=== PATIENT | female | born 1965 | race African-American/Black ===

== ENCOUNTER → 2017-05-28 | Day surgery (SDC) | payer OTHER ==
[~2017-05-28] MED LIST: ACETAMINOPHEN/HYDROcodone 325 MG/5 MG TAB ONE; BUPIVACAINE/EPINEPHRINE 0.5% PF 10 ML VIAL ONE; FIORTAB4 PO; KETOROLAC TROMETHAMINE 30 MG/ML (IVP) VIAL IV PUSH ONE; LACTATED RINGER'S 1000 ML INJ 1,000 ML ONE; MEPERIDINE HCL 25 MG/ML VIAL ONE; MIDAZOLAM HCL 2 MG/2 ML VIAL ONE; ONDANSETRON HCL 4 MG/2 ML VIAL IV PUSH ONE; PROPOFOL 200 MG/20 ML AMP IV ONE; SYNT112T PO; TRAM50 PO; ceFAZolin INJ 1,000 MG VIAL ONE
--- NOTE | 2017-05-28 14:13 | TN ---
cc: SARAH GARCIA M.D. DATE OF SURGERY: 05/28/2017 PREOPERATIVE DIAGNOSIS 1. Tear lateral meniscus, right knee. 2. Lateral patellar subluxation, right knee. POSTOPERATIVE DIAGNOSIS 1. Tear lateral meniscus, right knee. 2. Lateral patellar subluxation, right knee. PROCEDURE 1. Arthroscopy right knee. 2. Arthroscopic lateral meniscectomy, right knee. 3. Lateral release, right patella SURGEON Sarah Garcia ANESTHESIA General. ESTIMATED BLOOD LOSS Minimal. INDICATION This patient is a 51-year-old female with significant right knee pain. Investigative study shows evidence of a torn lateral meniscus. There is also suspicion of lateral facet patellar changes with lateral subluxation. She presents for surgical treatment. DETAILS OF PROCEDURE The patient was brought to the operating room and anesthetized in a supine position. The right leg was scrubbed with alcohol followed by Hibiclens followed by ChloraPrep and draped sterilely. Antibiotics were given within a one-hour time window and a timeout was done. Inflow was established anterior and medially. The suprapatellar pouch was inflated. The camera was introduced into the suprapatellar pouch. The suprapatellar pouch was unremarkable. There was minimal synovitis. The patella was significantly subluxed laterally even in a flexed position. The medial and lateral gutters were free of any loose bodies. There was some scarring seen along the lateral retinaculum and along the lateral condyle of the femur. Some corresponding changes of the femur were noted. The medial compartment was essentially normal with a normal-appearing meniscus, and a normal-appearing femur and tibia. The ACL had a normal footprint. The lateral compartment showed a deep tear starting very close to the popliteal hiatus and extending almost to the posterior horn. This had the appearance of a bucket handle tear that had been previously partially displaced and now nearly back to anatomic. There was also a tear right at the lateral meniscus posterior horn insertion. A spinal needle was introduced along the lateral joint line. A separate incision was made. Straight and angled punches were used to take the meniscus back from the 9 o'clock position to the posterior horn. The meniscal resection stopped just anterior to the popliteal hiatus. A proper probe was utilized and a lateral release was accomplished allowing the patella to come back to its normal position. The wound was irrigated copiously. Hemostasis was controlled. The portals were irrigated and anesthetized with 0.5% Marcaine with epinephrine. They were closed with Steri-Strips and benzoin. Sterile dressing was applied. The patient was awakened and taken to Recovery in satisfactory condition. MD DELMY [place]/ALE /1:55 PM /2:00 PM
== END | disposition home or self-care (01) ==
LOC: ESDC 11:02
PROVIDERS: ATTEND Orthopaedic Surgery Orthopaedic Surgery of the Spine
DX: S83.251A Bucket-handle tear of lateral meniscus, current injury, right knee, initial encounter (principal); S83.011A Lateral subluxation of right patella, initial encounter
CPT/HCPCS: 01400; 29873; 29881; J0690; J1885; J2175; J2250; J2405; J3010; J7120

== ENCOUNTER 2017-06-07 21:12 | Emergency (ER) | payer OTHER ==
[~2017-06-07] VITALS: Ht 172.7 cm; Wt 132.9 kg
[~2017-06-07 21:12] MED LIST changes: -ACETAMINOPHEN/HYDROcodone 325 MG/5 MG TAB ONE; -BUPIVACAINE/EPINEPHRINE 0.5% PF 10 ML VIAL ONE; -KETOROLAC TROMETHAMINE 30 MG/ML (IVP) VIAL IV PUSH ONE; -LACTATED RINGER'S 1000 ML INJ 1,000 ML ONE; -MEPERIDINE HCL 25 MG/ML VIAL ONE; -MIDAZOLAM HCL 2 MG/2 ML VIAL ONE; -ONDANSETRON HCL 4 MG/2 ML VIAL IV PUSH ONE; -PROPOFOL 200 MG/20 ML AMP IV ONE; -ceFAZolin INJ 1,000 MG VIAL ONE
[2017-06-07 21:17] VITALS: BP 136/72; PULSE 84; RESP 16; TEMP 98.6; O2SAT 97
[2017-06-07] MEDS ORDERED: LEVO175T2 PO ×2 (22:46)
[2017-06-07] MEDS ORDERED: LEVO150T7 PO ×2 (22:46)
[2017-06-07] MEDS ORDERED: BUTA1CAP PO (22:49)
[2017-06-07] MEDS ORDERED: DICL75TA PO (22:49)
[2017-06-07] MEDS ORDERED: HYDR-3516 PO (22:49)
[2017-06-07 22:51] VITALS: BP 149/90; PULSE 87; RESP 18; O2SAT 98
[2017-06-07] MEDS ORDERED: SODIUM CHLORIDE 0.9% FLUSH 10 ML FLUSH IV FLUSH PRN (23:00)
[2017-06-07] MEDS ORDERED: LIDOCAINE 1%/EPINEPHrine 1:100,000 SOLN 20 ML VIAL INFIL ONE (23:00)
--- NOTE | 2017-06-07 23:20 | PD ---
HPI Chief Complaint: Skin Problem Time Seen by Provider: 22:50 Travel History International Travel<30 days: No Contact w/Intl Traveler<30days: No Traveled to known affect area: No History of Present Illness HPI 51-year-old female here for evaluation of right knee pain. On 05/28/17 the patient underwent arthroscopic right knee surgery by orthopedic surgeon Dr. Anderson. According to the operative notes, the patient had a tear of the lateral meniscus of the right knee as well as lateral patellar subluxation of the right knee. Patient reports that she has been going to rehabilitation as prescribed. Today she noticed increasing pain and swelling to the right knee, and also noticed a low-grade fever of 99.8F at home. She denies any new trauma to the knee. Pain is moderate, constant, worse with movement and palpation. PFSH Past Medical History Anemia: No Asthma: Yes Heart Rhythm Problems: No Cardiovascular Problems: No High Cholesterol: No Chest Pain: Yes Congestive Heart Failure: No Diabetes: No Diminished Hearing: No Endocrine: Yes (GRAVES DISEASE WITH RADIATION TREATMENT IN 2005) Headaches: Yes Heparin Induced Thrombocytopen: Yes Hypertension: No Migraines: Yes Myocardial Infarction: No Radiation Therapy: Yes (THYROID, GRAVES ) Thyroid Disease: Yes Ulcer: Yes Tetanus Vaccination: > 5 Years Influenza Vaccination: No ?: Not Menopausal: Yes : 1 Para: 1 Past Surgical History Abdominal Surgery: Yes (FIBROIDS REMOVED) Section: Yes (X1) Coronary Artery Bypass Graft: No Gynecologic Surgery: Yes Hysterectomy: Yes Joint Replacement: Yes (right knee) Tonsillectomy: Yes Other Surgery: Yes (LAPAROTOMY) Family History Family Myocardial Infarction: Yes (brother had a triple bypass when he was 45, also last year) Social History Alcohol Use: No Tobacco Use: No Substance Use: No Allergies-Medications (Allergen,Severity, Reaction): Coded Allergies: Penelope (Verified Allergy, Severe, SEVERE HEAD PRESSURE, 06/07/17) Morphine (Verified Allergy, Severe, Itching, 06/07/17) Uncoded Allergies: EXCEDRIN (Allergy, Severe, SEVERE HEAD PRESSURE, 05/31/11) Reported Meds & Prescriptions Reported Meds & Active Scripts Active Reported Fioricet (Phghjptydq-Thpehpjhksswf-Hsermilj) 50-300-40 Mg Cap 1-2 Cap PO Q6H PRN Diclofenac Sodium DR (Diclofenac Sodium) 75 Mg Tabdr 75 Mg PO BID Hydrocodone-Acetaminophen 5-325 mg Tab 1 Tab PO Q6H PRN Levothyroxine (Levothyroxine Sodium) 175 Mcg Tab 175 Mcg PO EVERY OTHER DAY Levothyroxine (Levothyroxine Sodium) 150 Mcg Tab 150 Mcg PO EVERY OTHER DAY Review of Systems Except as stated in HPI: all other systems reviewed are Neg Physical Exam Narrative GENERAL: Well-developed, well-nourished, awake, alert, no apparent distress. SKIN: Focused skin assessment warm/dry. HEAD: Atraumatic. Normocephalic. EYES: Pupils equal and round. No scleral icterus. No injection or drainage. ENT: Mucous membranes pink and moist. NECK: Trachea midline. No JVD. CARDIOVASCULAR: Regular rate and rhythm. RESPIRATORY: No accessory muscle use. Clear to auscultation. Breath sounds equal bilaterally. MUSCULOSKELETAL: Right anterior knee with significant edema with diffuse tenderness with overlying warmth and slight erythema. No signs of lymphangitis. Bilateral calves are supple, nontender. NEUROLOGICAL: Awake and alert. No obvious cranial nerve deficits. Motor grossly within normal limits. Normal speech. PSYCHIATRIC: Appropriate mood and affect; insight and judgment normal. Data Data Last Documented VS Vital Signs Date Time Temp Pulse Resp B/P Pulse Ox O2 Delivery O2 Flow Rate FiO2 06/07/17 22:51 87 18 149/90 98 Room Air 06/07/17 21:17 98.6 Orders Complete Blood Count With Diff (06/07/17 23:00) Comprehensive Metabolic Panel (06/07/17 23:00) Prothrombin Time / Inr (Pt) (06/07/17 23:00) Act Partial Throm Time (Ptt) (06/07/17 23:00) Iv Access Insert/Monitor (06/07/17 23:00) Ecg Monitoring (06/07/17 23:00) Oximetry (06/07/17 23:00) Sodium Chloride 0.9% Flush (Ns Flush) (06/07/17 23:00) Blood Culture (06/07/17 23:00) Lidocai-Epi 1%-1:100,000 Inj (Xylocaine- (06/07/17 23:00) Westergren Sedimentation Rate (06/07/17 23:02) C-Reactive Protein (Crp) (06/07/17 23:02) Knee, Complete (4vws) (06/07/17 ) Hydromorphone Pf Inj (Dilaudid Pf Inj) (06/07/17 23:45) Ketorolac Inj (Toradol Inj) (06/08/17 00:00) Synovial Fl Cell Count + Diff (06/08/17 00:07) Synovial Fluid Crystals (06/08/17 00:07) Synovial Fluid Glucose (06/08/17 00:07) Synovial Fluid Total Protein (06/08/17 00:07) Fluid Culture And Gram Stain (06/08/17 00:07) Labs Laboratory Tests Test 06/07/17 23:45 White Blood Count 7.5 TH/MM3 Red Blood Count 4.82 MIL/MM3 Hemoglobin 12.9 GM/DL Hematocrit 37.9 % Mean Corpuscular Volume 78.6 FL Mean Corpuscular Hemoglobin 26.8 PG Mean Corpuscular Hemoglobin 34.1 % Concent Red Cell Distribution Width 13.9 % Platelet Count 265 TH/MM3 Mean Platelet Volume 7.8 FL Neutrophils (%) (Auto) 70.0 % Lymphocytes (%) (Auto) 22.5 % Monocytes (%) (Auto) 5.9 % Eosinophils (%) (Auto) 1.1 % Basophils (%) (Auto) 0.5 % Neutrophils # (Auto) 5.3 TH/MM3 Lymphocytes # (Auto) 1.7 TH/MM3 Monocytes # (Auto) 0.4 TH/MM3 Eosinophils # (Auto) 0.1 TH/MM3 Basophils # (Auto) 0.0 TH/MM3 CBC Comment DIFF FINAL Differential Comment Sodium Level 141 MEQ/L Potassium Level 4.0 MEQ/L Chloride Level 106 MEQ/L Carbon Dioxide Level 28.8 MEQ/L Anion Gap 6 MEQ/L Blood Urea Nitrogen 13 MG/DL Random Glucose 113 MG/DL Calcium Level 9.3 MG/DL Albumin 3.6 GM/DL [facility] Medical Decision Making Medical Screen Exam Complete: Yes Emergency Medical Condition: Yes Differential Diagnosis Septic arthritis, postoperative pain, synovitis Narrative Course Case discussed with on-call orthopedic surgeon Dr. Steele. Recommends arthrocentesis. If fluid analysis reveals obvious septic arthritis, then the patient will be started on antibiotics and will be admitted to the main hospital with a consult placed to Dr. Carl Anderson. Right knee arthrocentesis was performed by me. See procedure note. Liborio blood was aspirated. No notable purulence. At approximately midnight at the end of my shift the patient was signed out to Dr. Winchester to follow up with labs and right knee synovial fluid analysis. Procedures Procedure Narrative Right knee arthrocentesis: Informed consent obtained. Right knee was thoroughly prepped with ChloraPrep. 0.5 cc of 1% lidocaine with epinephrine was used for local anesthesia. Lateral/ suprapatellar approach was used, and 25 cc of bloody aspirate was obtained. Sample sent for further analysis. Tolerated well. No complications. Fab Casas MD Jun 07, 2017 23:20
[2017-06-07 23:30] VITALS: O2SAT 97
--- NOTE | 2017-06-07 23:39 | RADRPT ---
EXAM DATE/TIME: 06/07/2017 23:09 [place] COMPARISON: No previous studies available for comparison. INDICATIONS : Post op swelling of right knee. MEDICAL HISTORY : Lateral meniscus tear. SURGICAL HISTORY : Arthroscopic, right knee. ENCOUNTER: Initial ACUITY: 1 day PAIN SCORE: 5/10 LOCATION: Right knee. FINDINGS: 4 views of the right knee demonstrate no fracture. Mineralization is normal. There is a joint effusio n present. Subcutaneous edema is present laterally. No radiopaque foreign body is visualized. CONCLUSION: There is a joint effusion and subcutaneous edema laterally. Bhavik Jensen MD on June 07, 2017 at 23:35 Board Certified Radiologist. This report was verified electronically.
[2017-06-07] MEDS ORDERED: HYDROmorphone HCL PF 1 MG/ML VIAL IV PUSH ONE (23:45)
[2017-06-08] MEDS ORDERED: KETOROLAC TROMETHAMINE 30 MG/ML (IVP) VIAL IV PUSH ONE
[2017-06-08 00:06] LABS: WHITE BLOOD COUNT 7.5 TH/MM3 (4.0-11.0)
[2017-06-08 00:07] LABS: AUTOMATED NEUTROPHIL # 5.3 TH/MM3 (1.8-7.7); BASOPHIL % 0.5 % (0.0-2.0); EOSINOPHIL # 0.1 TH/MM3 (0-0.4); EOSINOPHIL % 1.1 % (0.0-4.0); HEMATOCRIT 37.9 % (35.0-46.0); HEMO FLAGS DIFF FINAL; LYMPH % 22.5 % (9.0-44.0); LYMPHOCYTE # 1.7 TH/MM3 (1.0-4.8); MEAN CELL VOLUME 78.6 FL (80.0-100.0); MEAN CORPUSCULAR HEMOGLOBIN 26.8 PG (27.0-34.0); MEAN CORPUSCULAR HGB CONC 34.1 % (32.0-36.0); MONO % 5.9 % (0.0-8.0); PLATELET COUNT 265 TH/MM3 (150-450); RED BLOOD COUNT 4.82 MIL/MM3 (4.00-5.30); RED CELL DISTRIBUTION WIDTH 13.9 % (11.6-17.2)
[2017-06-08 00:14] LABS: CHLORIDE 106 MEQ/L (98-107); SODIUM (NA) 141 MEQ/L (136-145)
[2017-06-08 00:18] LABS: ANION GAP 6 MEQ/L (5-15); BICARBONATE 28.8 MEQ/L (21.0-32.0); BLOOD UREA NITROGEN 13 MG/DL (7-18)
[2017-06-08 00:19] LABS: APTT (PATIENT) 30.2 SEC (24.3-30.1); INTERNATIONAL NORMALIZED RATIO 0.9 RATIO
[2017-06-08 00:21] LABS: ALT (GPT) 20 U/L (10-53); AST (GOT) 13 U/L (15-37); GLOMERULAR FILTRATION RATE 93 ML/MIN (>89)
[2017-06-08 00:22] LABS: TOTAL BILIRUBIN ADULT 0.3 MG/DL (0.2-1.0)
[2017-06-08 00:24] LABS: ALKALINE PHOSPHATASE 61 U/L (45-117)
--- NOTE | 2017-06-08 00:52 | PD ---
Physical Exam Date Seen by Provider: Jun 08, 2017 Time Seen by Provider: 00:51 Narrative accepted in transfer of care from Dr Casas GENERAL: Well-developed well-nourished female in no acute distress no respiratory distress SKIN: Warm and dry. MUSCULOSKELETAL: No cyanosis, mild right knee edema with dependent popliteal fossa ecchymosis. Data Data Last Documented VS Vital Signs Date Time Temp Pulse Resp B/P Pulse Ox O2 Delivery O2 Flow Rate FiO2 06/08/17 03:22 70 18 119/80 98 Room Air 06/07/17 21:17 98.6 Orders Complete Blood Count With Diff (06/07/17 23:00) Comprehensive Metabolic Panel (06/07/17 23:00) Prothrombin Time / Inr (Pt) (06/07/17 23:00) Act Partial Throm Time (Ptt) (06/07/17 23:00) Iv Access Insert/Monitor (06/07/17 23:00) Ecg Monitoring (06/07/17 23:00) Oximetry (06/07/17 23:00) Sodium Chloride 0.9% Flush (Ns Flush) (06/07/17 23:00) Blood Culture (06/07/17 23:00) Lidocai-Epi 1%-1:100,000 Inj (Xylocaine- (06/07/17 23:00) Westergren Sedimentation Rate (06/07/17 23:02) C-Reactive Protein (Crp) (06/07/17 23:02) Knee, Complete (4vws) (06/07/17 ) Hydromorphone Pf Inj (Dilaudid Pf Inj) (06/07/17 23:45) Ketorolac Inj (Toradol Inj) (06/08/17 00:00) Synovial Fl Cell Count + Diff (06/08/17 00:07) Synovial Fluid Crystals (06/08/17 00:07) Synovial Fluid Glucose (06/08/17 00:07) Synovial Fluid Total Protein (06/08/17 00:07) Fluid Culture And Gram Stain (06/08/17 00:07) Acetamin-Hydrocod 325-5 Mg (Tippo 5-325 (06/08/17 03:15) Splint Or Brace Apply/Monitor (06/08/17 03:28) Labs Laboratory Tests Test 06/07/17 06/07/1706/08/17 23:45 23:55 00:00 White Blood Count 7.5 TH/MM3 Red Blood Count 4.82 MIL/MM3 Hemoglobin 12.9 GM/DL Hematocrit 37.9 % Mean Corpuscular Volume 78.6 FL Mean Corpuscular Hemoglobin 26.8 PG Mean Corpuscular Hemoglobin 34.1 % Concent Red Cell Distribution Width 13.9 % Platelet Count 265 TH/MM3 Mean Platelet Volume 7.8 FL Neutrophils (%) (Auto) 70.0 % Lymphocytes (%) (Auto) 22.5 % Monocytes (%) (Auto) 5.9 % Eosinophils (%) (Auto) 1.1 % Basophils (%) (Auto) 0.5 % Neutrophils # (Auto) 5.3 TH/MM3 Lymphocytes # (Auto) 1.7 TH/MM3 Monocytes # (Auto) 0.4 TH/MM3 Eosinophils # (Auto) 0.1 TH/MM3 Basophils # (Auto) 0.0 TH/MM3 CBC Comment DIFF FINAL Differential Comment Prothrombin Time 10.0 SEC Prothromb Time International 0.9 RATIO Ratio Activated Partial 30.2 SEC Thromboplast Time Sodium Level 141 MEQ/L Potassium Level 4.0 MEQ/L Chloride Level 106 MEQ/L Carbon Dioxide Level 28.8 MEQ/L Anion Gap 6 MEQ/L Blood Urea Nitrogen 13 MG/DL Creatinine 0.79 MG/DL Estimat Glomerular Filtration 93 ML/MIN Rate Random Glucose 113 MG/DL Calcium Level 9.3 MG/DL Total Bilirubin 0.3 MG/DL Aspartate Amino Transf 13 U/L (AST/SGOT) Alanine Aminotransferase 20 U/L (ALT/SGPT) Alkaline Phosphatase 61 U/L C-Reactive Protein 2.16 MG/DL Total Protein 7.4 GM/DL Albumin 3.6 GM/DL Erythrocyte Sedimentation Rate 3 mm/hr Synovial Fluid Color RED Synovial Fluid Appearance BLOODY Synovial Fluid WBC 19035 /MM3 Synovial Fluid RBC 6814365 /MM3 Synovial Fluid Neutrophils 31 % Synovial Fluid Lymphocytes 20 % Synovial Fluid Monocytes 31 % Synovial Fluid Histiocytes 17 % Synovial Fluid Synovial 1 % Lining Cell Synovial Fluid Crystals NONE MDM Medical Record Reviewed: Yes Supervised Visit with MCKAY: No Interpretation(s) Synovial fluid cell count and differential white blood cell count 15,300 6031% neutrophils red blood cell count 1,000,832 960; Gram stain few WBCs no organisms seen Sedimentation rate 3, not elevated C-reactive protein 2.16, elevated Vital Signs Date Time Temp Pulse Resp B/P Pulse Ox O2 Delivery O2 Flow Rate FiO2 06/08/17 03:22 70 18 119/80 98 Room Air 06/08/17 01:25 20 06/08/17 01:09 68 18 138/83 98 Room Air 06/07/17 23:30 97 Room Air 06/07/17 22:51 87 18 149/90 98 Room Air 06/07/17 21:17 98.6 84 16 136/72 97 CBC & BMP Diagram 06/07/17 23:45 Differential Diagnosis accepted in transfer of care from Dr Casas; please refer to his dictation Narrative Course accepted in transfer of care from Dr Casas; for follow up of pending labs and patient disposition At 3:05 AM Gram stain few WBCs no organisms seen; synovial fluid cell count and differential 15,360 white blood cells 31% neutrophils with 1,832,960 red blood cells, specimen bloody; glucose pending Patient results do not appear to be consistent with septic arthritis but instead with a hemarthrosis and therefore stable for outpatient follow up with her orthopedist; 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 --recommends ortho outpatient follow up Physician Communication Physician Communication discussed arthrocentesis results with Dr Steele -- f/u opt w/ Dr Beverly Diagnosis Primary Impression: Hemarthrosis following procedure Qualified Code: T88.8XXA - Hemarthrosis following procedure, initial encounter Additional Impression: Hemarthrosis involving knee joint Qualified Code: M25.061 - Hemarthrosis involving knee joint, right Referrals: Carl Anderson MD call for appointment Patient Instructions: General Instructions Additional Instruction: wear knee immobilizer continue current medications Follow-up with Dr. Kennedy call office this a.m. to schedule follow-up appointment Elevate right lower extremity Apply ice intermittently for next 12-24 hours Return to the emergency department for any concerns or change in condition Med/Other Pt SpecificInfo: No Change to Meds Disposition: 01 DISCHARGE HOME Condition: Stable Lazara Winchester MD Jun 08, 2017 00:52
[2017-06-08 01:09] VITALS: BP 138/83; PULSE 68; RESP 18; O2SAT 98
[2017-06-08 01:33] LABS: WBC, SYNOVIAL FLUID 15360 /MM3 (0-200)
[2017-06-08] MEDS ORDERED: ACETAMINOPHEN/HYDROcodone 325 MG/5 MG TAB PO ONE (03:15)
[2017-06-08 03:22] VITALS: BP 119/80; PULSE 70; RESP 18; O2SAT 98
[2017-06-10 19:51] LABS: TOTAL PROTEIN, SYNOVIAL FLUID 4.9 g/dL (1.0-3.0)
== END 2017-06-08 04:00 | disposition home or self-care (01) ==
LOC: PHED 21:12
DX: T88.8XXA Other specified complications of surgical and medical care, not elsewhere classified, initial encounter (principal); M25.061 Hemarthrosis, right knee; R50.9 Fever, unspecified
CPT/HCPCS: 20610; 73564; 80053; 82945; 84157; 85025; 85610; 85652; 85730; 86140; 87040; 87070; 87205; 89051; 89060; 96374; 99284; J1885; L1830